=== PATIENT | female | born 1990 | race Caucasian/White ===

== ENCOUNTER 2016-11-24 14:10 | Emergency (ER) | payer MEDICAID, OTHER ==
[2016-11-24 16:30] VITALS: BP 114/60
--- NOTE | 2016-11-24 16:41 | UC ---
Throat Pain/Nasal Ameya HPI - HPI Summary HPI Summary: 26 yo female with less than 48 hour hx of sore throat/nasal congestion/cough and fatigue 24 hour hx of fever and chills as well as myalgias and malaise no n/v/d she is about 5 wks - History of Current Complaint Chief Complaint: UCGeneralIllness Stated Complaint: SINUSES,FEVER Time Seen by Provider: 11/24/16 16:31 Hx Obtained From: Patient Hx Last Menstrual Period: 10/25/16 Onset/Duration: Gradual Onset, Lasting Days Severity: Moderate Pain Intensity: 3 Pain Scale Used: 0-10 Numeric Cough: Nonproductive Associated Signs & Symptoms: Positive: Nasal Discharge, Fever - Epiglottits Risk Factors Epiglottis Risk Factors: Negative - Allergies/Home Medications Allergies/Adverse Reactions: Allergies Allergy/AdvReac Type Severity Reaction Status Date / Time No Known Allergies Allergy Verified 02/21/16 08:25 PMH/Surg Hx/FS Hx/Imm Hx Previously Healthy: Yes Endocrine History Of: Reports: Thyroid Disease - thyroid nodule benign 06/20/15 WITH BIOPSY Denies: Diabetes, Hypothyroidism - Surgical History Surgical History: Yes Surgery Procedure, Year, and Place: 06/2015 THYROID NODULE BIOPSY (BENIGN), OFFICE - Family History Known Family History: Positive: Cardiac Disease, Hypertension, Diabetes - Social History Alcohol Use: None Substance Use Type: None Smoking Status (MU): Heavy Every Day Tobacco Smoker Type: Cigarettes Amount Used/How Often: 1/2 ppd Length of Time of Smoking/Using Tobacco: 5 YEARS Have You Smoked in the Last Year: Yes Household Exposure Type: Cigarettes - Immunization History Most Recent Influenza Vaccination: 09/3015 Most Recent Tetanus Shot: 08/07/15 Most Recent Pneumonia Vaccination: never Review of Systems Constitutional: Fever, Chills Skin: Negative Eyes: Negative ENT: Sore Throat, Nasal Discharge Respiratory: Cough Cardiovascular: Negative Gastrointestinal: Other - nausea Genitourinary: Negative Motor: Negative Neurovascular: Negative Musculoskeletal: Myalgia Neurological: Headache Psychological: Negative All Other Systems Reviewed And Are Negative: Yes Physical Exam Triage Information Reviewed: Yes Appearance: Well-Appearing, No Pain Distress, Well-Nourished Vital Signs: Initial Vital Signs Temp 100.4 F 11/24/16 16:24 Pulse 104 11/24/16 16:24 Resp 16 11/24/16 16:24 BP 114/60 11/24/16 16:24 Pulse Ox 100 11/24/16 16:24 Vital Signs Reviewed: Yes Eyes: Positive: Conjunctiva Clear ENT: Positive: Hearing grossly normal, Pharyngeal erythema, Nasal congestion, Nasal drainage, TMs normal. Negative: Tonsillar swelling, Tonsillar exudate, Trismus, Muffled/hoarse voice Dental Exam: Normal Neck: Positive: Supple, Nontender, No Lymphadenopathy Respiratory: Positive: Lungs clear, Normal breath sounds, No respiratory distress Cardiovascular: Positive: RRR, No Murmur Musculoskeletal: Positive: Strength Intact, ROM Intact Neurological Exam: Normal Neurological: Positive: Alert Psychological Exam: Normal Throat Pain/Nasal Course/Dx - Differential Dx/Diagnosis Provider Diagnoses: influenza Discharge - Discharge Plan Condition: Stable Disposition: HOME Prescriptions: Oseltamivir CAP* [Tamiflu CAP*] 75 mg PO BID #10 cap Patient Education Materials: Influenza (ED) Referrals: Chirag Webb MD [Primary Care Provider] - 4 Days (if not better) Additional Instructions: stop breast feeding while on tamiflu rest tylenol
== END 2016-11-24 17:22 | disposition home or self-care (01) ==
LOC: UCCORT 14:10
DX: O98.811 Other maternal infectious and parasitic diseases complicating pregnancy, first trimester (principal); J11.1 Influenza due to unidentified influenza virus with other respiratory manifestations; O26.891 Other specified pregnancy related conditions, first trimester; O99.281 Endocrine, nutritional and metabolic diseases complicating pregnancy, first trimester; O99.331 Smoking (tobacco) complicating pregnancy, first trimester; F17.210 Nicotine dependence, cigarettes, uncomplicated; Z3A.01 Less than 8 weeks gestation of pregnancy
CPT/HCPCS: 87502; 87651; 99212; G0463

== ENCOUNTER 2017-07-26 08:24 | Inpatient (IN) | payer BC, OTHER ==
[2017-07-26] MEDS ORDERED: Oxytocin in LR* 20 UNITS/1,000 ML BAG IVPB SCH ×2 (09:00→14:33)
[2017-07-26] MEDS ORDERED: Oxytocin in LR* 20 UNITS/1,000 ML BAG IVPB ONE (09:11)
[2017-07-26 09:59] LABS: Hematocrit 34 % (35-47); Hemoglobin 11.8 g/dl (12.0-16.0); Mean Corpuscular HGB Conc 35 g/dl (31-36); Mean Corpuscular Hemoglobin 30 pg (27-31); Mean Corpuscular Volume 87 fL (80-97); Mean Platelet Volume 8 um3 (7.4-10.4); Red Blood Count 3.88 10^6/ul (4.0-5.4); Red Cell Distribution Width 12 % (10.5-15); White Blood Count 8.7 10^3/ul (3.5-10.8)
[2017-07-26] MEDS ORDERED: fentaNYL* 50 MCG/ML 2 ML VIAL (100 MCG VIAL) ONE ×2 (11:37→14:12)
[2017-07-26] MEDS ORDERED: Sodium Citrate/Citric Acid* 15 ML UDC PO PRN (12:04)
[2017-07-26] MEDS ORDERED: Phenylephrine IV* 40 MCG/ML 10 ML SYRINGE IV PUSH PRN ×2 (12:04)
[2017-07-26] MEDS ORDERED: Famotidine TAB* 20 MG PO PRN (12:04)
[2017-07-26] MEDS ORDERED: fentaNYL* 50 MCG/ML 2 ML VIAL (100 MCG VIAL) IV SLOW PU ONE (14:10)
[2017-07-26] MEDS ORDERED: Glycerin ADULT SUPP PR PRN (14:27)
[2017-07-26] MEDS ORDERED: Witch Hazel PAD* JAR TOPICAL PRN (14:27)
[2017-07-26] MEDS ORDERED: Dibucaine 1% 28.35 GM TUBE PR PRN (14:27)
[2017-07-26] MEDS ORDERED: Acetaminophen TAB* 325 MG PO PRN (14:27)
[2017-07-26] MEDS ORDERED: Misoprostol TAB* 200 MCG PR ONE (14:27)
[2017-07-26] MEDS ORDERED: Misoprostol TAB* 200 MCG ONE (14:28)
[2017-07-26] MEDS: Ibuprofen TAB* 600 MG PO PRN ×2 (17:04→22:53)
[2017-07-26] MEDS: oxyCODONE/Acetamin 5/325 MG* TAB PO PRN (19:58)
[2017-07-26] MEDS: Docusate CAP* 100 MG PO SCH (21:16)
[2017-07-27] MEDS: oxyCODONE/Acetamin 5/325 MG* TAB PO PRN ×3 (01:22→21:06)
[2017-07-27] MEDS: Ibuprofen TAB* 600 MG PO PRN ×3 (06:53→19:27)
[2017-07-27 07:19] LABS: Hematocrit 31 % (35-47); Hemoglobin 10.8 g/dl (12.0-16.0); Mean Corpuscular HGB Conc 35 g/dl (31-36); Mean Corpuscular Hemoglobin 31 pg (27-31); Mean Corpuscular Volume 86 fL (80-97); Mean Platelet Volume 7 um3 (7.4-10.4); Red Blood Count 3.53 10^6/ul (4.0-5.4); Red Cell Distribution Width 12 % (10.5-15); White Blood Count 10.6 10^3/ul (3.5-10.8)
[2017-07-27] MEDS: Nicotine Patch Removal NOTE PATCH OFF SCH (08:30)
[2017-07-27] MEDS ORDERED: Ferrous Gluconate TAB* 324 MG TAB PO SCH (09:00)
[2017-07-27] MEDS: Nicotine PATCH 7 MG/24 HR* PATCH TRANSDERM SCH (10:05)
[2017-07-27] MEDS: Docusate CAP* 100 MG PO SCH ×3 (10:05→21:06)
[2017-07-28] MEDS: Ibuprofen TAB* 600 MG PO PRN (03:28)
[2017-07-28] MEDS: Nicotine Patch Removal NOTE PATCH OFF SCH (07:57)
[2017-07-28 08:10] VITALS: BP 108/68
[2017-07-28] MEDS: Nicotine PATCH 7 MG/24 HR* PATCH TRANSDERM SCH (08:16)
[2017-07-28] MEDS: Docusate CAP* 100 MG PO SCH (09:07)
== END 2017-07-28 09:30 | disposition home or self-care (01) | DRG 560 ==
LOC: MCHOBOUT 08:24 → MCHOB 08:55
PROVIDERS: ADMIT Midwife; ATTEND Midwife
PROC: 3E0P7VZ Introduction of Hormone into Female Reproductive, Via Natural or Artificial Opening (ICD-10-PCS; principal; 2017-07-26)
PROC: 10907ZC Drainage of Amniotic Fluid, Therapeutic from Products of Conception, Via Natural or Artificial Opening (ICD-10-PCS; 2017-07-26)
PROC: 10E0XZZ Delivery of Products of Conception, External Approach (ICD-10-PCS; 2017-07-26)
PROC: 4A1HXCZ Monitoring of Products of Conception, Cardiac Rate, External Approach (ICD-10-PCS; 2017-07-26)
DX: O69.81X0 Labor and delivery complicated by cord around neck, without compression, not applicable or unspecified (principal); O72.1 Other immediate postpartum hemorrhage; O99.334 Smoking (tobacco) complicating childbirth; F17.200 Nicotine dependence, unspecified, uncomplicated; Z3A.39 39 weeks gestation of pregnancy; Z37.0 Single live birth; O71.89 Other specified obstetric trauma
CPT/HCPCS: 36415; 85025; 85027; 86850; 86900; 86901; A9270-GY; J3010

== ENCOUNTER 2017-08-01 07:18 | Emergency (ER) | payer BC, OTHER ==
[2017-08-01 07:30] VITALS: BP 124/83
--- NOTE | 2017-08-01 07:40 | UC ---
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 It's super painful. It pops once in a while and it hurts even worse." for one day. Denies fever or cold symptoms. History of ear infections and cerumen impaction. Patient gave one week ago. 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 PCP Tracey." no fevers. no cough. no wheezing. She is nursing. 4th child. no other concerns. - History of Current Complaint Chief Complaint: UCEar Stated Complaint: RIGHT EAR PAIN Time Seen by Provider: 08/01/17 07:20 Hx Last Menstrual Period: 10/25/16 - Allergies/Home Medications Allergies/Adverse Reactions: Allergies Allergy/AdvReac Type Severity Reaction Status Date / Time No Known Allergies Allergy Verified 08/01/17 07:26 PMH/Surg Hx/FS Hx/Imm Hx Previously Healthy: Yes - Surgical History Surgical History: Yes Surgery Procedure, Year, and Place: 06/2015 THYROID NODULE BIOPSY (BENIGN), OFFICE - Family History Known Family History: Positive: None, Cardiac Disease, Hypertension, Diabetes - Social History Alcohol Use: None Substance Use Type: None Smoking Status (MU): Light Every Day Tobacco Smoker Type: Cigarettes Amount Used/How Often: 1/2 PPD Length of Time of Smoking/Using Tobacco: On and Off Since Age 15 Have You Smoked in the Last Year: Yes Household Exposure Type: Cigarettes - Immunization History Most Recent Influenza Vaccination: 06/2017 Most Recent Tetanus Shot: 08/07/15 Most Recent Pneumonia Vaccination: never Review of Systems Constitutional: Negative Skin: Negative Eyes: Negative ENT: Ear Ache, Other - decreased hearing Respiratory: Negative Cardiovascular: Negative Gastrointestinal: Negative Genitourinary: Negative Motor: Negative Neurovascular: Negative Musculoskeletal: Negative Neurological: Negative Psychological: Negative Is Patient Immunocompromised?: No All Other Systems Reviewed And Are Negative: Yes Physical Exam Triage Information Reviewed: Yes Appearance: Well-Appearing, No Pain Distress, Well-Nourished Vital Signs: Initial Vital Signs Temp 98.7 F 08/01/17 07:25 Pulse 112 08/01/17 07:25 Resp 16 08/01/17 07:25 BP 124/83 08/01/17 07:25 Pulse Ox 100 08/01/17 07:25 Vital Signs Reviewed: Yes Eye Exam: Normal ENT: Positive: Pharynx normal, TM dull, TM red - retracted. right. decreased hearing on right., Other: - no cerumen, not tender. canal nml. left is nml. Dental Exam: Normal Neck exam: Normal Neck: Positive: Supple, Nontender, No Lymphadenopathy Respiratory Exam: Normal Respiratory: Positive: Lungs clear, Normal breath sounds Cardiovascular Exam: Normal Cardiovascular: Positive: RRR, No Murmur, Pulses Normal Abdominal Exam: Normal Abdomen Description: Positive: Nontender, Soft Musculoskeletal Exam: Normal Neurological Exam: Normal Psychological Exam: Normal Skin Exam: Normal Ear Complaint Course/Dx - Course Course Of Treatment: Rt OM & hearing loss. Treat w/ amox. +breast feeding. adv to be seen within a few days of hearing not improved. may need prednisone. she is aware. - Differential Dx/Diagnosis Differential Diagnosis/HQI/PQRI: Otitis Externa, Otitis Media Provider Diagnoses: Rt OM, rt hearing loss Discharge - Discharge Plan Condition: Stable Disposition: HOME Prescriptions: Amoxicillin PO (*) [Amoxicillin 875 MG (*)] 875 mg PO BID #20 tab Patient Education Materials: Otitis Media (ED) Referrals: Chirag Webb MD [Primary Care Provider] - Additional Instructions: Make sure to take a probiotic daily while on antibiotics to help prevent a potential complication of antibiotic use called c diff. Some well known brands that can be found OTC are [employer], [employer] and [employer]. Make sure to complete the entire prescription unless advised otherwise by your health care provider.
== END 2017-08-01 07:53 | disposition home or self-care (01) ==
LOC: UCCORT 07:18
DX: H66.91 Otitis media, unspecified, right ear (principal); H91.91 Unspecified hearing loss, right ear; F17.210 Nicotine dependence, cigarettes, uncomplicated
CPT/HCPCS: 99212; G0463

== ENCOUNTER → 2017-09-18 11:15 | Day surgery (SDC) | payer BC, OTHER ==
[~2017-09-18 11:15] MED LIST: Buffered Lidocaine 0.9% SYRIN* 5 ML/SYR SYRINGE INTRADERM ONE; Buffered Lidocaine 0.9% SYRIN* 5 ML/SYR SYRINGE ONE; Bupivacaine 0.25% SDV* 30 ML ONE; Cisatracurium* 2 MG/ML MDV 5 ML ONE; Dexamethasone IV* 4 MG/ML 1 ML (4 MG) ONE; Glycopyrrolate IV* 0.2 MG/ML 1 ML VIAL ONE; Ketorolac INJ* 30 MG/ML 1 ML VIAL ONE; Neostigmine Methylsulfate* 2 MG/2 ML SYRINGE ONE; Ondansetron INJ* 2 MG/ML VIAL IV PRN; Propofol* 10 MG/ML 20 ML BTL IV PUSH ONE; Sodium Citrate/Citric Acid* 15 ML UDC ONE; Sodium Citrate/Citric Acid* 15 ML UDC PO ONE; fentaNYL* 50 MCG/ML 2 ML VIAL (100 MCG VIAL) ONE; oxyCODONE/Acetamin 5/325 MG* TAB ONE
[2017-09-18 12:07] LABS: Hematocrit 44 % (35-47); Hemoglobin 15.1 g/dl (12.0-16.0); Mean Corpuscular HGB Conc 34 g/dl (31-36); Mean Corpuscular Hemoglobin 29 pg (27-31); Mean Corpuscular Volume 85 fL (80-97); Mean Platelet Volume 7 um3 (7.4-10.4); Red Blood Count 5.17 10^6/ul (4.0-5.4); Red Cell Distribution Width 12 % (10.5-15); White Blood Count 7.6 10^3/ul (3.5-10.8)
[2017-09-18] MEDS: fentaNYL* 50 MCG/ML 2 ML VIAL (100 MCG VIAL) IV PRN ×4 (13:26→13:54)
[2017-09-18 14:31] VITALS: BP 109/74
--- NOTE | 2017-09-19 16:04 | OP ---
DATE OF OPERATION: 09/18/17 [facility] DATE OF : 89 SURGEON: Joselyn Parra MD ANESTHESIOLOGIST: Dr. Jorge. ANESTHESIA: General endotracheal. PRE-OP DIAGNOSIS: Satisfied parity. POST-OP DIAGNOSIS: Satisfied parity. OPERATIVE PROCEDURE: Laparoscopic bilateral tubal ligation with Filshie clips. ESTIMATED BLOOD LOSS: Minimal. URINE OUTPUT: 500 cc. IV FLUIDS: 900 cc lactated Ringer's. MATERIALS TO LAB: None. INDICATIONS: This patient was a 27-year-old 5, para 4 who is approximately 2 months . The patient had expressed a desire for permanent sterilization during her and consents were signed at that time. Post-, she continued to desire to have permanent sterilization, so this was scheduled today. FINDINGS: Normal-appearing pelvis. Normal uterus, fallopian tubes, and ovaries. COMPLICATIONS: None. DESCRIPTION OF PROCEDURE: The risks, benefits, and alternatives were described to the patient, and informed consent was obtained. The patient was taken to the operating room with IV running where general anesthesia was induced and found to be adequate. The patient was prepped and draped in normal-sterile fashion in the low lithotomy position and Praneeth stirrups. A time-out was performed. The bladder was emptied. A bivalve speculum was placed in the vagina and a Hulka tenaculum was placed through the cervix into the uterus. The speculum was then removed. Attention was then turned to the abdomen. 0.25% Marcaine was then injected into the skin of the umbilicus as well as 2-cm above the pubic symphysis. A 5 mm skin incision was made with a scalpel in the umbilicus. An Ethicon Xcel blade with trocar was then inserted through the incision and into the peritoneal cavity without difficulty. The skin was elevated using penetrating towel clamps. Once the trocar was in the abdominal cavity, the abdomen was insufflated with carbon dioxide gas to a maximum pressure of 15 mmHg. Using the camera, the area below the trocar placement was carefully inspected and there was no evidence of trauma or bleeding. The patient was placed in Trendelenburg position. A second incision about 8 mm in length was placed 2 cm above the pubic symphysis in a transverse fashion. An 8- mm blunt trocar was also placed through this incision and into the abdominal cavity without difficulty. Using the Hulka tenaculum for manipulation, the uterus was elevated and well visualized. The structures appeared normal. Filshie clips were prepared. A Filshie clip was then placed on the patient's right fallopian tube in the mid isthmic portion without difficulty. The same was then performed on the patient's left side, again without difficulty and with excellent hemostasis. The case was then completed. The trocars were removed from the abdomen and the gas was allowed to escape. The skin was reapproximated using 4-0 Monocryl and a subcuticular stitch, and the incisions were then overlaid with Dermabond skin adhesive. The tenaculum was then removed from the cervix as well, and there was only light bleeding from the vagina at that time. The patient was returned to the supine position and allowed to awaken. The patient tolerated the procedure well. Sponge, lap, and needle counts were correct x2. [id number]/[facility] #: [id number] MTDD
== END | disposition home or self-care (01) ==
LOC: OR 11:15
PROVIDERS: ATTEND Obstetrics & Gynecology
DX: Z30.2 Encounter for sterilization (principal); Z85.828 Personal history of other malignant neoplasm of skin; F17.210 Nicotine dependence, cigarettes, uncomplicated
CPT/HCPCS: 36415; 81025; 85027; 86850; 86900; 86901; A9270-GY; J1100; J1885; J2704; J3010

== ENCOUNTER 2019-03-26 07:05 | Emergency (ER) | payer BC, MEDICAID ==
[2019-03-26 07:18] VITALS: BP 109/58
--- NOTE | 2019-03-26 07:39 | UC ---
Throat Pain/Nasal Ameya HPI - HPI Summary HPI Summary: 29-year-old woman comes in with a chief complaint of sore throat and fevers. Symptoms have been going on for about 4 days. Her daughter recently had strep throat. She's been taking ibuprofen and using Chloraseptic spray which does help some with the pain. Swallowing makes the pain worse. She is able to eat and drink no respiratory distress. - History of Current Complaint Chief Complaint: UCGeneralIllness Stated Complaint: SORE THROAT Time Seen by Provider: 03/26/19 07:21 Hx Last Menstrual Period: 03/19/19 Pain Intensity: 3 - Allergies/Home Medications Allergies/Adverse Reactions: Allergies Allergy/AdvReac Type Severity Reaction Status Date / Time No Known Allergies Allergy Verified 03/26/19 07:18 Home Medications: Home Medications Levothyroxine Sodium 75 mcg PO DAILY 03/26/19 [History Confirmed 03/26/19] PMH/Surg Hx/FS Hx/Imm Hx Previously Healthy: Yes Endocrine History: Hypothyroidism - Surgical History Surgical History: Yes Surgery Procedure, Year, and Place: 06/2015 THYROID NODULE BIOPSY (BENIGN), OFFICE. D&C, 2016. tube in right ear, 2018. tubal ligation, 2017. sinus closure 2019. thyroid needle bx - Family History Known Family History: Positive: None, Cardiac Disease, Hypertension, Diabetes - Social History Alcohol Use: None Substance Use Type: None Smoking Status (MU): Light Every Day Tobacco Smoker Type: Cigarettes Amount Used/How Often: smokes 6-8 cigarettes a day. smoked for 8-10 years Length of Time of Smoking/Using Tobacco: On and Off Since Age 15 Have You Smoked in the Last Year: Yes Household Exposure Type: Cigarettes - Immunization History Most Recent Influenza Vaccination: 06/2017 Most Recent Tetanus Shot: 08/07/15 Most Recent Pneumonia Vaccination: never Review of Systems All Other Systems Reviewed And Are Negative: Yes Constitutional: Positive: Fever Skin: Positive: Negative Eyes: Positive: Negative ENT: Positive: Sore Throat Respiratory: Positive: Negative Cardiovascular: Positive: Negative Gastrointestinal: Positive: Negative Motor: Positive: Negative Neurovascular: Positive: Negative Musculoskeletal: Positive: Negative Neurological: Positive: Negative Psychological: Positive: Negative Is Patient Immunocompromised?: No Physical Exam Triage Information Reviewed: Yes Appearance: No Pain Distress, Well-Nourished, Ill-Appearing - mild Vital Signs: Initial Vital Signs Temp 98.3 F 03/26/19 07:14 Pulse 105 03/26/19 07:14 Resp 20 03/26/19 07:14 BP 109/58 03/26/19 07:14 Pulse Ox 100 03/26/19 07:14 Vital Signs Reviewed: Yes Eye Exam: Normal Eyes: Positive: Conjunctiva Clear ENT: Positive: Pharyngeal erythema, Nasal congestion, Nasal drainage, TMs normal Neck: Positive: Supple Respiratory: Positive: Lungs clear, Normal breath sounds, No respiratory distress Cardiovascular: Positive: RRR Musculoskeletal: Positive: Strength Intact, ROM Intact Neurological: Positive: Alert, Muscle Tone Normal Psychological Exam: Normal Psychological: Positive: Age Appropriate Behavior Skin Exam: Normal Throat Pain/Nasal Course/Dx - Course Course Of Treatment: DISCUSSED VIRAL VERSES BACTERIAL INFECTION AND THE ROLE OF ANTIBIOTICS. THE PATIENT PREFERS TO BE ON ANTIBIOTICS AT THIS TIME. - Differential Dx/Diagnosis Provider Diagnosis: Pharyngitis Discharge - Sign-Out/Discharge Documenting (check all that apply): Patient Departure All imaging exams completed and their final reports reviewed: No Studies - Discharge Plan Condition: Stable Disposition: HOME Prescriptions: Amoxicillin PO (*) [Amoxicillin 875 MG (*)] 875 mg PO BID #20 tab Patient Education Materials: Pharyngitis (ED) Referrals: Chirag Webb MD [Primary Care Provider] - Additional Instructions: FOLLOW UP WITH YOUR DOCTOR IF NOT COMPLETELY IMPROVED. GET RECHECKED SOONER IF YOUR CONDITION WORSENS OR ANY QUESTIONS OR CONCERNS. - Billing Disposition and Condition Condition: STABLE Disposition: Home
== END 2019-03-26 07:43 | disposition home or self-care (01) ==
LOC: UCCORT 07:05
DX: J02.9 Acute pharyngitis, unspecified (principal); E03.9 Hypothyroidism, unspecified; F17.210 Nicotine dependence, cigarettes, uncomplicated
CPT/HCPCS: 87651; 99212; G0463

== ENCOUNTER 2022-09-26 08:28 | Inpatient (IN) ==
[2022-09-26] MEDS ORDERED: Promethazine INJ(RESTRICTED) 25 MG/ML 1 ml VIAL IV PRN (09:23)
[2022-09-26] MEDS ORDERED: Buffered Lidocaine 1% SYRIN 1 ml INTRADERM ONE (09:23)
[2022-09-26] MEDS ORDERED: Nalbuphine 10 MG/ML 1 ML VIAL IV PRN (09:23)
[2022-09-26] MEDS ORDERED: Lactated Ringers 1000 ml BAG 1,000 ML IV ONE ×2 (09:23→19:03)
[2022-09-26] MEDS ORDERED: Oxytocin in LR 20,000 MILLI.UNIT/1,000 ML BAG IV SCH (09:30)
[2022-09-26 10:20] LABS: ABS Basophils 0.1 10^3/ul (0-0.2); ABS Lymphocytes 1.5 10^3/ul (1.0-4.8); ABS Monocytes 0.5 10^3/ul (0-0.8); ABS Neutrophils 6.8 10^3/ul (1.5-7.7); Eosinophil % 0.3 %; Hematocrit 30 % (35-47); Hemoglobin 10.3 g/dL (12.0-16.0); Lymphocyte % 16.8 %; Mean Corpuscular HGB Conc 35 g/dL (31-36); Mean Corpuscular Hemoglobin 30 pg (27-31); Mean Corpuscular Volume 87 fL (80-97); Mean Platelet Volume 6.8 fL (7.4-10.4); Platelet Count 247 10^3/uL (150-450); Red Blood Count 3.39 10^6 /uL (3.70-4.87); Red Cell Distribution Width 14 % (10-15); White Blood Count 8.9 10^3/uL (3.5-10.8)
[2022-09-26 10:55] LABS: Urine Benzodiazepine Screen None Detected (None Detect); Urine Cannabinoids Screen None Detected (None Detect); Urine Opiates Screen None Detected (None Detect)
[2022-09-26] MEDS: Calcium Carb (TUMS) 500 mg CHEW TAB PO PRN ×2 (11:44→20:16)
[2022-09-26] MEDS: Lactated Ringers 1000 ml BAG 1,000 ML IV SCH ×2 (15:25→19:01)
[2022-09-26] MEDS ORDERED: EPINEPHrine SULFITE FREE 1 MG/ML ONE (18:09)
[2022-09-26] MEDS ORDERED: Lidocaine 1% VIAL 10 MG/ML VIAL 30 ML ONE (18:09)
[2022-09-26] MEDS ORDERED: OBEPIDURAL (200 ML) 200 ML EPIDURAL ONE (18:09)
[2022-09-26] MEDS ORDERED: Sodium Citrate/Citric Acid LIQ 15 ML UDC PO PRN (19:03)
[2022-09-26] MEDS ORDERED: Phenylephrine 40 mcg/mL 10mL (400mcg) SYRINGE IV PUSH PRN ×2 (19:03)
[2022-09-26] MEDS ORDERED: Lactated Ringers 1000 ml BAG 1,000 ML IV SCH ×2 (20:00→22:00)
[2022-09-26] MEDS ORDERED: OBEPIDURAL (200 ML) 200 ML EPIDURAL SCH (20:00)
[2022-09-26 20:38] LABS: Urine Appearance Cloudy; Urine Bilirubin Negative (Negative); Urine Blood Trace (Intact) (Negative); Urine Color Yellow; Urine Glucose Negative (Negative); Urine Ketones Negative (Negative)
[2022-09-26 20:39] LABS: Urine Nitrite Negative (Negative); Urine Protein Negative (Negative); Urine Urobilinogen 0.2 (Negative) (Negative); Urine pH 7.5 (5.0-9.0)
[2022-09-26 20:44] LABS: Urine Amorphous Crystals Present (Absent); Urine Bacteria Absent (Absent); Urine Red Blood Cell 2+(6-10/hpf) (Absent); Urine Squamous Epithelial Cell Present (Absent); Urine White Blood Cell Trace(0-5/hpf) (Absent)
[2022-09-26] MEDS ORDERED: Witch Hazel PAD JAR TOPICAL PRN (21:20)
[2022-09-26] MEDS ORDERED: Dibucaine 1% OINT 28.35 GM TUBE PR PRN (21:20)
[2022-09-27 07:23] LABS: ABS Lymphocytes 0.9 10^3/ul (1.0-4.8); ABS Monocytes 0.9 10^3/ul (0-0.8); ABS Neutrophils 7.4 10^3/ul (1.5-7.7); Eosinophil % 0.3 %; Hematocrit 29 % (35-47); Lymphocyte % 9.7 %; Mean Corpuscular HGB Conc 34 g/dL (31-36); Mean Corpuscular Hemoglobin 30 pg (27-31); Mean Corpuscular Volume 88 fL (80-97); Mean Platelet Volume 7.3 fL (7.4-10.4); Platelet Count 219 10^3/uL (150-450); Red Blood Count 3.35 10^6 /uL (3.70-4.87); Red Cell Distribution Width 14 % (10-15); White Blood Count 9.4 10^3/uL (3.5-10.8)
[2022-09-27] MEDS ORDERED: Influenza vaccine *QUAD* *2022-23* 0.5 ML SYRINGE IM ONE (11:00)
[2022-09-28 07:40] VITALS: BP 96/56
== END 2022-09-28 14:41 | disposition home or self-care (01) | DRG 560 ==
LOC: MCHOBOUT 08:28 → MCHOB 09:06
PROVIDERS: ADMIT Registered Nurse; ATTEND Registered Nurse